=== PATIENT | male | born 2000 | race Caucasian/White ===

== ENCOUNTER 2022-09-10 18:42 | Emergency (ER) | payer BC, SELFPAY ==
--- NOTE | 2022-09-10 18:49 | ED.WOUNDLAC ---
HPI - Wound/Laceration General Chief Complaint: Wound/Laceration Stated Complaint: FINGER LACERATION Source: patient and RN notes reviewed History of Present Illness HPI narrative: 22-year-old male presents to urgent care with complaints laceration to his right hand. Patient states prior to arrival he cut his hand on conduit. Patient denies any numbness, tingling, limited strength and hand, or other injuries. Patient is unknown on last tetanus vaccination. Some parts of this dictation were generated by voice recognition software and may contain typographical and/or grammatical inaccuracies. Related Data Home Medications Medication Instructions Recorded Confirmed finasteride 1 mg tablet 1 mg PO DAILY 09/10/22 09/10/22 Allergies Allergy/AdvReac Type Severity Reaction Status Date / Time amoxicillin Allergy Unknown Unknown Verified 09/10/22 18:47 penicillin G Allergy Unknown Verified 09/10/22 18:47 Review of Systems Review of Systems: CONSTITUTIONAL: Denies fever, chills, or sweats. EYES: Denies visual changes, redness, or discharge. ENT: Denies otalgia and sore throat CARDIOVASCULAR: Denies chest pain, palpitations, or edema. RESPIRATORY: Denies cough or dyspnea. GASTROINTESTINAL: Denies abdominal pain, nausea, vomiting, or diarrhea. GENITOURINARY: Denies dysuria or hematuria. SKIN: hand laceration MUSCULOSKELETAL: Denies back pain, joint pain, or myalgia. NEUROLOGIC: Denies headache, numbness, or weakness. Pertinent positives per HPI. PMFSH Surgical History Surgical History H/O adenoidectomy Family History Family History Mother Diabetes mellitus Family history of attention deficit hyperactivity disorder (ADHD) Social History Social History Smoking status: Never smoker Alcohol intake: never Substance use type: marijuana Comments At the time of my signature, I reviewed and agree with the nursing past medical, surgical, social, and family history. There is no relevant family history pertinent to the patient complaint. Exam Narrative: GENERAL: This is a well-nourished, well-developed patient, in no apparent distress. HEAD: normocephalic, atraumatic. EYES: Sclera clear/white. Vision is grossly intact. EARS: External ears normal, auditory canals clear and without drainage. Hearing grossly intact. NOSE: External nose normal with no obvious nasal discharge, nares without redness, no rhinorrhea. THROAT: Mucous membranes moist, posterior pharynx clear. NECK: Neck supple, non-tender without lymphadenopathy, masses or thyromegaly. CARDIOVASCULAR: Regular rate RESPIRATORY: no respiratory distress GASTROINTESTINAL: Abdomen soft, non-tender, nondistended. Bowel sounds are active. No hepato-splenomegaly, or palpable masses. No guarding. SKIN: 1 cm laceration to volar side of hand, overlying 2nd MCP joint NEURO: awake, alert, and oriented to person, place and time. There were no obvious focal neurologic abnormalities. EXTREMITIES: No clubbing, cyanosis, or edema. No joint tenderness, effusion, or edema noted. Course Course Level of Care: Express Care Visit Vital Signs Vital signs: Vital Signs Temperature 98.7 F 09/10/22 18:59 Pulse Rate 78 09/10/22 18:59 Respiratory Rate 16 09/10/22 18:59 Blood Pressure 121/70 09/10/22 18:59 Pulse Oximetry 99 09/10/22 18:59 Temperature 98.7 F 09/10/22 18:59 Pulse Rate 78 09/10/22 18:59 Respiratory Rate 16 09/10/22 18:59 Blood Pressure 121/70 09/10/22 18:59 Pulse Oximetry 99 09/10/22 18:59 Reviewed Procedures Laceration Laceration 1: Date: 09/10/22 Time: 19:00 Site: upper extremity (volar side, 2nd proximal phalanx) Side (If applicable): right Size (cm): 1.5 Description: irregular Depth: simple, single layer
[2022-09-10] MEDS: LIDOCAINE HCL 1% LOCAL INJ 2 ML AMPUL 4 ML INFILTRATE (18:58)
[2022-09-10] MEDS: TETANUS,DIPHTHERIA,AC PERTUSSIS ADULT (0.5 ML) BOOSTRIX IM (18:58)
[2022-09-10 18:59] VITALS: BP 121/70; PULSE 78; RESP 16; TEMP 37.1; O2SAT 99
== END 2022-09-10 19:24 | disposition home or self-care (01) ==
PROVIDERS: Emergency Provider Nurse Practitioner Family
DX: S61.411A Laceration without foreign body of right hand, initial encounter (principal); W45.8XXA Other foreign body or object entering through skin, initial encounter; Z23 Encounter for immunization; F12.90 Cannabis use, unspecified, uncomplicated
CPT/HCPCS: 12001; 90471; 90715; 99213; G0463

== ENCOUNTER 2023-04-06 21:48 | Emergency (ER) | payer BC, SELFPAY ==
--- NOTE | ~2023-04-06 | XR_ITS ---
EXAMINATION: XR chest 1V portable INDICATION: Anxiety TECHNIQUE: Portable AP chest at 1054 hours COMPARISON: None available FINDINGS: The lungs are free of acute opacities. No pleural effusion or pneumothorax. The cardiomedia stinal silhouette is normal. IMPRESSION: 1. No acute cardiopulmonary abnormality. Reviewed, dictated and finalized at location [facility]
[2023-04-06 21:53] VITALS: BP 153/89; PULSE 66; RESP 15; TEMP 36.2; O2SAT 99
--- NOTE | 2023-04-06 22:22 | ED.GENADULT ---
[facility] - General Adult General Chief complaint: Unspecified Stated complaint: my face started vibrating Time Seen by Provider: 04/06/23 22:13 History of Present Illness [facility] narrative: Patient presents the emergency department with his family. He has had a couple episodes in the past few days of feeling like his face is vibrating and then having generalized muscle contractures. Patient also having chest pain at that time. He feels like his face is vibrating but his mom said that she she does not feel anything. Patient had 2 episodes this week and had similar episode when his uncle Related Data Home Medications Medication Instructions Recorded Confirmed finasteride 1 mg tablet 1 mg PO DAILY 09/10/22 09/18/22 Allergies Allergy/AdvReac Type Severity Reaction Status Date / Time amoxicillin Allergy Unknown Unknown Verified 04/06/23 21:49 penicillin G Allergy Unknown Verified 04/06/23 21:49 Review of Systems Review of Systems: Negative except for what is documented in the [facility] Surgical History Surgical History H/O adenoidectomy Family History Family History Mother Diabetes mellitus Family history of attention deficit hyperactivity disorder (ADHD) Social History Social History (Updated 09/18/22 @ 13:49 by Savannah Martin MA) Smoking status: Never smoker Alcohol intake: never Substance use type: marijuana Lack of Transportation: No Lack of Food: Never True Current Housing: I Have Housing Concerned About Future Housing: No Difficulty Paying Gas/Electric Bills: No Difficulty Paying for Meds: No Currently Unemployed: No Education: Associate Degree Difficulty w/ Childcare or Family Care: No Exam Narrative: GENERAL: Well-appearing, well-nourished, and in no acute distress. HEAD: Normocephalic, atraumatic. EYES: PERRLA and EOMI. ENT: Nares clear, no rhinorrhea or epistaxis. Mucous membranes moist. NECK: Supple. CHEST: Clear to auscultation. No respiratory distress. HEART: Regular rate and rhythm. ABDOMEN: Soft, nontender, nondistended. EXTREMITIES: Normal range of motion. No edema. SKIN: Warm, dry, no rash. NEURO: No focal deficits. Alert and oriented x3. PSYCH: Normal mood and affect. Course Vital Signs Vital signs: Vital Signs Temperature 36.2 C L 04/06/23 21:53 Pulse Rate 66 04/06/23 21:53 Respiratory Rate 15 04/06/23 21:53 Blood Pressure 153/89 H 04/06/23 21:53 Pulse Oximetry 99 04/06/23 21:53 Oxygen Delivery Room Air 04/06/23 21:53 Temperature 36.2 C L 04/06/23 21:53 Pulse Rate 66 04/06/23 21:53 Respiratory Rate 15 04/06/23 21:53 Blood Pressure 153/89 H 04/06/23 21:53 Pulse Oximetry 99 04/06/23 21:53 Oxygen Delivery Room Air 04/06/23 21:53 Medical Decision Making MDM Narrative Medical decision making narrative: Blood pressure initially elevated. White blood cell count slightly elevated and secondary to recent stressful events. Bilirubin also slightly elevated with unknown etiology. No acute abnormal lab findings are concerning. Will DC patient to home with follow-up with his primary care prior. Vital Signs Vital Signs: Vital Signs Temperature 36.2 C L 04/06/23 21:53 Pulse Rate 66 04/06/23 21:53 Respiratory Rate 15 04/06/23 21:53 Blood Pressure 153/89 H 04/06/23 21:53 Pulse Oximetry 99 04/06/23 21:53 Oxygen Delivery Room Air 04/06/23 21:53 Temperature 36.2 C L 04/06/23 21:53 Pulse Rate 66 04/06/23 21:53 Respiratory Rate 15 04/06/23 21:53 Blood Pressure 153/89 H 04/06/23 21:53 Pulse Oximetry 99 04/06/23 21:53 Oxygen Delivery Room Air 04/06/23 21:53 Lab Data 04/06/23 23:01 04/06/23 23:01 Labs: Lab Results 04/06/23 Range/Units 23:01 WBC 12.8 H (4.5-10.0) K/mm3 RBC 5.75 (4.6-6.20) M/mm3 Hgb 17.7 (
--- NOTE | 2023-04-06 22:47 | ECG_ITS ---
Measurements Intervals [place] Rate: 74 P: 68 LA: 123 QRS: 87 QRSD: 105 T: 31 QT: 371 QTc: 412 Interpretive Statements SINUS RHYTHM WITH SINUS ARRHYTHMIA DELAYED PRECORDIAL R/S TRANSITION BASELINE ARTIFACT- I, II, III, AVR, AVL, AVF, V1-V6 BORDERLINE ECG NO PREVIOUS ECG AVAILABLE FOR COMPARISON Electronically Signed On 04-07-2023 6:19:25 [employer] by Pete Lee D.O.
[2023-04-06 23:07] LABS: Basophils Absolute Auto 0.1 K/mm3 (0.0-0.1); Basophils Percent Auto 0.4 % (0.2-1.2); Eosinophils Absolute Auto 0.2 K/mm3 (0-0.3); Eosinophils Percent Auto 1.6 % (0-4.4); Hematocrit 50.9 % (42.0-52.0); Hemoglobin 17.7 g/dL (14.0-18.0); Immature Granulocyte Absolute 0.04 K/mm3 (0.00-0.031); Immature Granulocyte Percent A 0.3 % (0-0.5); Lymphocytes Absolute Auto 2.14 K/mm3 (0.9-3.2); Lymphocytes Percent Auto 16.7 % (18.3-44.2); Mean Corpuscular HGB Conc 34.8 g/dl (32-36); Mean Corpuscular Hemoglobin 30.8 pg (26-34); Mean Corpuscular Volume 88.5 fl (80-100); Mean Platelet Volume 10.1 fl (7.4-10.4); Monocytes Absolute Auto 1.1 K/mm3 (0.1-0.6); Monocytes Percent Auto 8.3 % (2.6-8.5); Neutrophils Absolute Auto 9.3 K/mm3 (1.3-6.7); Neutrophils Percent Auto 72.7 % (45.5-73.1); Platelet Count Result 301 k/mm3 (150-375); Red Blood Count 5.75 M/mm3 (4.6-6.20); Red Cell Distribution Width 12.2 % (11.5-14.5); White Blood Count 12.8 K/mm3 (4.5-10.0)
[2023-04-06 23:17] LABS: Alanine Aminotransferase 24 U/L (6-50); Albumin Level 5.2 g/dL (3.5-5.1); Alkaline Phosphatase 43 U/L (38-126); Anion Gap 12 mmol/L (8-16); Aspartate Amino Transferase 27 U/L (17-59); Bilirubin,Total 2.1 mg/dL (0.2-1.3); Blood Urea Nitrogen 13 mg/dL (9-20); Calcium 10.1 mg/dL (8.4-10.2); Carbon Dioxide 27 mmol/L (22-30); Chloride 102 mmol/L (98-107); Estimated CRCL calculation 113 ml/min; Estimated Glomerular Filt Rate > 60; Glucose 107 mg/dL (65-110); Potassium 4.1 mmol/L (3.4-5.0); Sodium 141 mmol/L (137-145)
== END 2023-04-07 00:34 | disposition home or self-care (01) ==
PROVIDERS: Emergency Provider Emergency Medicine; PCP Family Medicine
DX: R20.2 Paresthesia of skin (principal); R25.2 Cramp and spasm
CPT/HCPCS: 36415; 71045; 80053; 85025; 93005; 99283